=== PATIENT | female | born 1950 | race Caucasian/White ===

== ENCOUNTER 2016-08-31 19:20 | Emergency (ER) | payer OTHER ==
[2016-08-31 19:46] VITALS: BP 122/69; PULSE 78; TEMP 97.9; BMI 20.7
--- NOTE | 2016-08-31 20:47 | PDOC ---
History of Present Illness - General Chief Complaint: Allergic Reaction Stated Complaint: RASH Time Seen by Provider: 08/31/16 20:13 History Source: Patient Exam Limitations: No Limitations - History of Present Illness Initial Comments: 08/31/16 20:42 CC ITCHY RASH X 10 DAYS; POST IV DRY FOR STRESS AND NEW ASA; ?? FOOD PRODUCTS Timing/Duration: reports: changing over time Severity: Yes: mild Location: reports: extremities, torso Respiratory Risk Factors: reports: exposure to allergen, medications (ASA INCREASE DOSE) Modifying Factors: improves with: antihistamine (WITH SOME RELIEF) Past History - Past Medical History Home Medications: Ambulatory Orders Aspirin/Calcium Carbonate/Mag [Aspirin Buffered 325 mg Tab] 325 mg PO ASDIR 10/14 Atorvastatin Ca [Lipitor] 20 mg PO HS 08/31/16 Diphenhydramine HCl [Benadryl -] 25 mg PO Q6H 08/31/16 Ergocalciferol [Drisdol -] 50,000 unit PO ONCE 08/31/16 Metoprolol Succinate [Toprol Xl -] 25 mg PO DAILY 08/31/16 Cardiac Disorders: Yes HTN: Yes Hypercholesterolemia: Yes - Psycho/Social/Smoking Cessation Hx Anxiety: No Suicidal Ideation: No Smoking History: Never smoked Have you smoked in the past 12 months: No Information on smoking cessation initiated: No Hx Alcohol Use: No Drug/Substance Use Hx: No Substance Use Type: None Review of Systems - Review of Systems Constitutional: No: Chills, Fever, Malaise HEENTM: Yes: Nose Pain, Nose Congestion. No: Symptoms Reported, Throat Pain, Throat Swelling Respiratory: No: Symptoms reported, Cough, Stridor ABD/GI: No: Symptoms Reported, Diarrhea, Nausea, Vomiting *Physical Exam - Vital Signs Last Vital Signs Temp Pulse Resp BP Pulse Ox 97.9 F 78 18 122/69 100 08/31/16 19:41 08/31/16 19:41 08/31/16 19:41 08/31/16 19:41 08/31/16 19:41 - Physical Exam General Appearance: Yes: Appropriately Dressed HEENT: positive: TMs Normal, Pharynx Normal Neck: positive: Supple. negative: Tender, Rigid, Stridor, Lymphadenopathy (R), Lymphadenopathy (L) Respiratory/Chest: positive: Lungs Clear, Normal Breath Sounds. negative: Accessory Muscle Use Cardiovascular: positive: Regular Rhythm, Regular Rate. negative: Murmur Medical Decision Making - Medical Decision Making 08/31/16 20:45 WILL SUGGEST PT STOP ASA X 1 WEEK AND CALL REGISTERED PUBLIC SURVEYOR FRIDAY ABOUT RASH AND TELL ABOUT HOLDING ASA; WILL SUGGEST STARTING BENADRYL EVERY 6 HOURS INSTEAD OF PRN X 2 DAYS *DC/Admit/Observation/Transfer Diagnosis at time of Disposition: Allergic reaction to drug Qualifiers: Encounter type: initial encounter Qualified Code(s): T78.40XA - Allergy, unspecified, initial encounter - Discharge Dispostion Disposition: HOME Condition at time of disposition: Stable Admit: No - Patient Instructions Additional Instructions: PLEASE STOP ASPIRIN AND EATING NUTS, CHOCOLATE; CALL REGISTERED PUBLIC SURVEYOR ON FRIDAY TO DISCUSS POSSIBLE DRUG REACTION; SEE LOCAL MD EARLY NEXT WEEK
== END 2016-08-31 20:57 | disposition home or self-care (01) ==
LOC: JERFT 19:20 → SUPCPDRO 19:20 → JERFT 20:57
DX: T78.40XA Allergy, unspecified, initial encounter (principal); X58.XXXA Exposure to other specified factors, initial encounter; Y93.9 Activity, unspecified; I10 Essential (primary) hypertension; E78.00 Pure hypercholesterolemia, unspecified; I51.9 Heart disease, unspecified
CPT/HCPCS: 99281-25

== ENCOUNTER 2016-11-15 19:45 | Emergency (ER) | payer OTHER ==
[2016-11-15 20:22] VITALS: BP 110/70; PULSE 90; TEMP 98.9; BMI 20.3
[2016-11-15] MEDS ORDERED: SODIUM CHLORIDE 1,000 ML IV STA (22:18)
[2016-11-15 23:07] LABS: BASOPHIL 0.3 % (0-2.0); EOSINOPHIL 1.7 % (0-4.5); MCH 32.4 pg (25.7-33.7); MCHC 33.3 g/dl (32.0-36.0); MEAN CELL VOLUME 97.2 fl (80-96); MEAN PLT VOLUME 8.1 fl (7.5-11.1); NEUTROPHILS 72.8 % (42.8-82.8); PLATELET COUNT 221 K/MM3 (134-434); RDW 13.6 % (11.6-15.6); WHITE BLOOD COUNT 4.8 K/mm3 (4.0-10.0)
[2016-11-15 23:37] LABS: ALK PHOS 89 U/L (45-117); ANION GAP 14 (8-16); BILIRUBIN,TOTAL 1.2 mg/dL (0.2-1.0); C-REACTIVE PROTEIN 3.1 MG/DL (0.00-0.3); CALCIUM 8.5 mg/dL (8.5-10.1); CO2 27 mmol/L (21-32); CREATININE 0.8 mg/dL (0.55-1.02); GLUCOSE,RANDOM 111 mg/dL (74-106); SGOT/AST 27 U/L (15-37); SGPT/ALT 26 U/L (12-78); TOT PROT 7.2 g/dl (6.4-8.2)
[2016-11-16] MEDS ORDERED: FAMOTIDINE 20 MG/50 ML IVPB 50 ML IVPB ONE ×2 (00:13→01:21)
[2016-11-16] MEDS ORDERED: methylPREDNISolone NA SUCC 125 MG/2 ML VIAL IVPB ONE (00:13)
[2016-11-16] MEDS ORDERED: methylPREDNISolone NA SUCC 125 MG/2 ML VIAL ONE (01:21)
[2016-11-16 01:39] LABS: URINE APPEARANCE CLEAR; URINE BILIRUBIN NEGATIVE (NEGATIVE); URINE COLOR YELLOW; URINE GLUCOSE (UA) NEGATIVE (NEGATIVE); URINE KETONE NEGATIVE (NEGATIVE); URINE LEUK ESTERASE NEGATIVE (NEGATIVE); URINE NITRITE NEGATIVE (NEGATIVE); URINE PROTEIN NEGATIVE (NEGATIVE); URINE UROBILINOGEN 2.0 E.U/dl E.U./dl (0.2-1.0)
[2016-11-16 01:46] LABS: URINE BLOOD 1+ (NEGATIVE)
[2016-11-16 01:47] LABS: URINE MUCUS FEW; URINE RBC 2 /hpf (0-3); URINE WBC 1 /hpf (3-5)
--- NOTE | 2016-11-16 02:28 | PDOC ---
History of Present Illness - General Chief Complaint: Hives Stated Complaint: HIVES Time Seen by Provider: 11/15/16 20:48 History Source: Patient Exam Limitations: No Limitations - History of Present Illness Initial Comments: 11/16/16 02:23 66yo Female patient w/ PmHx: Urticaria hives presents to ED c/o worsening symptoms. Patient reports have been ongoing, she has seen many specialist and everyone is doing special blood testing. Patient now reports hives have worsened , feel hot to touch and very red. Patient was seen by Dr. Healy (ENT) this past Friday and prescribed Zyrtec for symptoms management. She states a few weeks ago, she was prescribed prednisone for 21 days; symptoms improved but then worsened. Patient CP, Abd pain, n/v/d, fever, cough, congestion, back pain , diff breathing or any other complaints at this time. Timing/Duration: reports: constant, getting worse Severity: Yes: severe Location: reports: generalized Respiratory Risk Factors: reports: no cause identified Modifying Factors: worse with: antihistamine, calamine lotion, prednisone, scratching, topical steriods, other Associated Symptoms: denies: denies symptoms, blisters, change in skin texture, edema, fever, flushing, headache, hives, jaundice, malaise, nasal congestion, numbness, pallor, paresthesia, petechiae, rash, sore throat, swelling/mass/lumps , tingling, other Past History - Travel Traveled outside of the country in the last 30 days: No Close contact w/someone who was outside of country & ill: No - Past Medical History Allergies/Adverse Reactions: Allergies Allergy/AdvReac Type Severity Reaction Status Date / Time No Known Allergies Allergy Verified 11/15/16 20:22 Home Medications: Ambulatory Orders Aspirin/Calcium Carbonate/Mag [Aspirin Buffered 325 mg Tab] 325 mg PO ASDIR 10/14 Atorvastatin Ca [Lipitor] 20 mg PO HS 08/31/16 Diphenhydramine HCl [Benadryl -] 25 mg PO Q6H 08/31/16 Ergocalciferol [Drisdol -] 50,000 unit PO ONCE 08/31/16 Metoprolol Succinate [Toprol Xl -] 25 mg PO DAILY 08/31/16 Cephalexin Monohydrate [Keflex -] 500 mg PO Q8H #21 capsule 11/16/16 Prednisone [Deltasone -] 10 mg PO DAILY #42 tablet 11/16/16 Cardiac Disorders: Yes HTN: Yes Hypercholesterolemia: Yes - Psycho/Social/Smoking Cessation Hx Anxiety: No Suicidal Ideation: No Smoking History: Never smoked Have you smoked in the past 12 months: No Information on smoking cessation initiated: No Hx Alcohol Use: No Drug/Substance Use Hx: No Substance Use Type: None Review of Systems - Review of Systems Able to Perform ROS?: Yes Is the patient limited [place] proficient: No Constitutional: No: Chills, Fever Respiratory: No: Cough, Shortness of Breath, Stridor, Wheezing, Hemoptysis Cardiac (ROS): No: Chest Pain, Palpitations, Syncope, Chest Tightness ABD/GI: No: Constipated, Diarrhea, Nausea, Poor Appetite, Poor Fluid Intake, Vomiting, Abdominal cramping : No: Burning, Dysuria, Discharge, Flank Pain, Hematuria Musculoskeletal: No: Back Pain, Joint Pain, Muscle Pain, Muscle Weakness, Neck Pain Integumentary: Yes: Erythema, Pruritus, Rash, Other (Hives). No: Bruising, Lumps Neurological: No: Headache, Numbness, Paresthesia, Seizure, Tingling, Tremors, Weakness All Other Systems: Reviewed and Negative *Physical Exam - Vital Signs Last Vital Signs Temp Pulse Resp BP Pulse Ox 98.9 F 90 18 110/70 98 11/15/16 20:19 11/15/16 20:19 11/15/16 20:19 11/15/16 20:19 11/15/16 20:19 - Physical Exam General Appearance: Yes: Nourished, Appropriately Dressed. No: Apparent Distress, Mild Distress, Moderate Distress, Severe Distress HEENT: positive: EOMI, ROSARIO, Normal ENT Inspection, Normal Voice, Symmetrical, TMs Normal, Pharynx Normal. negative: Pharyngeal Erythema, Tonsillar Exudate, Tonsillar Erythema, Nasal Congestion, Rhinorrhea, Sinus Tenderness, TM Bulging, TM Dull, TM Erythema Neck: positive: Trachea midline, Supple. negative: Rigid, Decreased range of motion, Stridor, Lymphadenopathy (R), Lymphadenopathy (L) Respiratory/Chest: positive: Lungs Clear, Normal Breath Sounds. negative: Chest Tender, Respiratory Distress, Accessory Muscle Use, Labored Respiration, Rapid RR Cardiovascular: positive: Regular Rhythm, Regular Rate Gastrointestinal/Abdominal: positive: Normal Bowel Sounds, Soft. negative: Distended, Guarding, Rebound, Tenderness Lymphatic: negative: Adenopathy, Tenderness Musculoskeletal: positive: Normal Inspection. negative: CVA Tenderness, CVA Tenderness (R), CVA Tenderness (L), Vertebral Tenderness Extremity: positive: Normal Capillary Refill, Normal Inspection, Normal Range of Motion. negative: Pedal Edema, Swelling, Calf Tenderness, Erythema, Inflammation Integumentary: positive: Normal Color, Dry, Warm, Erythema, Hives, Rash, Swelling, Other (Large Wheals, erythema, raised generalized.) Neurologic: positive: atg architect II-XII NML intact, Fully Oriented, Alert, Normal Mood/ Affect, Normal Response, Motor Strength 11/01 ED Treatment Course - LABORATORY CBC & Chemistry Diagram: 11/15/16 22:35 11/15/16 22:35 - ADDITIONAL ORDERS Additional order review: Laboratory Results 11/16/16 11/15/16 01:30 22:35 Sodium 138 Potassium 3.6 Chloride 97 L Carbon Dioxide 27 Anion Gap 14 BUN 20 H Creatinine 0.8 Creat Clearance w eGFR > 60 Random Glucose 111 H Calcium 8.5 Total Bilirubin 1.2 H AST 27 ALT 26 Alkaline Phosphatase 89 C-Reactive Protein 3.1 H Total Protein 7.2 Albumin 4.0 Urine Color Yellow Urine Appearance Clear Urine pH 5.0 Urine Protein Negative Urine Glucose (UA) Negative Urine Ketones Negative Urine Blood 1+ H Urine Nitrite Negative Urine Bilirubin Negative Urine Urobilinogen 2.0 e.u/dl H Ur Leukocyte Esterase Negative Urine RBC 2 Urine WBC 1 Ur Epithelial Cells Rare Urine Mucus Few 11/15/16 22:35 RBC 4.38 MCV 97.2 H MCHC 33.3 RDW 13.6 MPV 8.1 Neutrophils % 72.8 Lymphocytes % 19.9 Monocytes % 5.3 Eosinophils % 1.7 Basophils % 0.3 - Medications Given in the ED: ED Medications Discontinued Medications Generic Name Dose Route Start Last Admin Trade Name Freq PRN Reason Stop Dose Admin Diphenhydramine HCl 12.5 mg 11/16/16 00:13 11/16/16 01:19 Benadryl Injection - IVPUSH 11/16/16 00:14 12.5 mg ONCE ONE Administration Sodium Chloride 1,000 mls @ 1,000 mls/hr 11/15/16 22:18 11/15/16 22:52 Normal Saline - IV 11/15/16 23:17 1,000 mls/hr ASDIR STA Administration Famotidine/Sodium Chloride 50 mls @ 100 mls/hr 11/16/16 00:13 11/16/16 01:19 Pepcid 20 Mg Premixed Ivpb - IVPB 11/16/16 00:42 100 mls/hr ONCE ONE Administration Methylprednisolone Sodium Succinate 125 mg 11/16/16 00:13 11/16/16 01:19 Solu-Medrol - IVPB 11/16/16 00:14 125 mg ONCE ONE Administration *DC/Admit/Observation/Transfer Diagnosis at time of Disposition: Idiopathic urticaria - Discharge Dispostion Disposition: HOME Condition at time of disposition: Improved Admit: No - Prescriptions Prescriptions: Prednisone [Deltasone -] 10 mg PO DAILY #42 tablet Cephalexin Monohydrate [Keflex -] 500 mg PO Q8H #21 capsule - Patient Instructions Printed Discharge Instructions: DI for Rash Additional Instructions: FOLLOW UP WITH YOUR DOCTOR DISCUSSED. TAKE MEDICATIONS PRESCRIBED. RETURN IF ANY CONCERNS FOR FURTHER EVALUATION. DRINK PLENTY WATER. AVOID THE SUN. YOU MUST DRINK LOTS OF WATER WHILE TAKING THIS MEDICATION (PREDNISONE). Print Language: IVORIAN
[2016-11-16] MEDS ORDERED: CEPHALEXIN MONOHYDRATE 500 MG CAPSULE (UD) PO ONE (02:44)
[2016-11-16] MEDS ORDERED: CEPHALEXIN MONOHYDRATE 250 MG CAPSULE (FP) ONE (03:07)
[2016-11-19 00:06] LABS: BABESIA MICROTI ANTIBODY IGG <1:10 (Neg:<1:10)
== END 2016-11-16 03:10 | disposition home or self-care (01) ==
LOC: JER 19:45 → SUPCPDRO 19:45 → JERFT 19:45 → JER 11-16 03:10
PROC: 3E0337Z Introduction of Electrolytic and Water Balance Substance into Peripheral Vein, Percutaneous Approach (ICD-10-PCS; principal; 2016-11-15)
PROC: 3E033GC Introduction of Other Therapeutic Substance into Peripheral Vein, Percutaneous Approach (ICD-10-PCS; 2016-11-15)
PROC: 3E033GC Introduction of Other Therapeutic Substance into Peripheral Vein, Percutaneous Approach (ICD-10-PCS; 2016-11-15)
PROC: 3E0333Z Introduction of Anti-inflammatory into Peripheral Vein, Percutaneous Approach (ICD-10-PCS; 2016-11-15)
DX: L50.1 Idiopathic urticaria (principal); I10 Essential (primary) hypertension; E78.00 Pure hypercholesterolemia, unspecified
CPT/HCPCS: 36415; 80053; 81003; 81015; 82930; 85025; 85651; 86140; 86618; 86666; 86753; 87040; 87086; 96361; 96365; 96375; 99281-25